=== PATIENT | female | born 1965 | race Caucasian/White ===

== ENCOUNTER 2016-09-26 15:24 | Inpatient (IN) | payer MEDICARE, OTHER ==
[~2016-09-26] VITALS: Ht 157.5 cm; Wt 95.6 kg
[2016-09-26 17:07] VITALS: BP 135/86; PULSE 78; TEMP 97.9; O2SAT 94
[2016-09-26 18:22] VITALS: BP 131/82; PULSE 84; RESP 18; TEMP 98.4; O2SAT 97
[2016-09-26] MEDS ORDERED: CLON.5 PO (19:48)
[2016-09-26 19:59] LABS: AUTOMATED NEUTROPHIL # 6.5 TH/MM3 (1.8-7.7); BASOPHIL # 0.1 TH/MM3 (0-0.2); BASOPHIL % 1.1 % (0.0-2.0); EOSINOPHIL # 0.1 TH/MM3 (0-0.4); EOSINOPHIL % 1.1 % (0.0-4.0); HEMATOCRIT 42.4 % (35.0-46.0); HEMO FLAGS DIFF FINAL; LYMPH % 26.4 % (9.0-44.0); LYMPHOCYTE # 2.6 TH/MM3 (1.0-4.8); MEAN CELL VOLUME 86.5 FL (80.0-100.0); MEAN CORPUSCULAR HEMOGLOBIN 29.8 PG (27.0-34.0); MEAN CORPUSCULAR HGB CONC 34.5 % (32.0-36.0); MONO % 5.7 % (0.0-8.0); NEUT % 65.7 % (16.0-70.0); PLATELET COUNT 213 TH/MM3 (150-450)
[2016-09-26 20:10] LABS: AMPHETAMINE, URINE NEG (NEG); BARBITURATES, URINE NEG (NEG); COCAINE, URINE NEG (NEG)
[2016-09-26 20:16] LABS: ANION GAP 10 MEQ/L (5-15)
[2016-09-26 20:20] LABS: ALKALINE PHOSPHATASE 97 U/L (45-117); ALT (GPT) 27 U/L (10-53); AST (GOT) 22 U/L (15-37); BICARBONATE 23.6 MEQ/L (21.0-32.0); BLOOD UREA NITROGEN 11 MG/DL (7-18); CHLORIDE 105 MEQ/L (98-107); GLOMERULAR FILTRATION RATE 81 ML/MIN (>89); POTASSIUM 3.3 MEQ/L (3.5-5.1); SODIUM (NA) 139 MEQ/L (136-145); TOTAL BILIRUBIN ADULT 0.5 MG/DL (0.2-1.0)
[2016-09-26] MEDS: POTASSIUM CHLORIDE 25 MEQ EFFERVESCENT TAB PO ONE ×2 (21:15→22:05)
--- NOTE | 2016-09-26 21:15 | PD ---
HPI Chief Complaint: Psychiatric Symptoms Time Seen by Provider: 21:14 Travel History International Travel<30 days: No Contact w/Intl Traveler<30days: No Traveled to known affect area: No History of Present Illness HPI 51-year-old female is brought to the emergency department under Herring act for erratic behavior. Apparently the patient got out of her vehicle and began dancing in the street. The patient states that she is here from [facility]. States that she "just took a drive." She states she has a history of depression and PTSD. When asked if she has ever got out of her car and danced in the street like this before she states that yes she has done this in the past. She states that she doesn't feel well overall however has no specific complaints. Denies any fever, chills, nausea, vomiting, diarrhea, constipation, chest pain, shortness of breath, abdominal pain, headache, dizziness. Denies alcohol or drug use. No other complaints. PFSH Past Medical History Bipolar Disorder: Yes Anxiety: Yes Depression: Yes Diabetes: No Patient Takes Glucophage: No Diminished Hearing: No Seizures: No ?: Unknown Past Surgical History Cholecystectomy: Yes Social History Alcohol Use: No Tobacco Use: No Substance Use: No Allergies-Medications (Allergen,Severity, Reaction): Coded Allergies: Sulfa (Verified Allergy, Severe, UNKNOWN, 09/26/16) Reported Meds & Prescriptions Reported Meds & Active Scripts Active Reported Klonopin (Clonazepam) 0.5 Mg Tab 0.5 Mg PO DAILY Review of Systems Except as stated in HPI: all other systems reviewed are Neg Physical Exam Narrative GENERAL: Well-nourished and well-developed pleasant female patient in no acute distress who is nontoxic appearing. Flat affect. SKIN: Warm and dry. HEAD: Normocephalic and atraumatic. EYES: No injection, drainage, or hyphema noted. PERRLA. EOMI. ENT: No nasal drainage noted. Oropharynx is clear. NECK: Supple and the trachea is midline. CARDIOVASCULAR: Regular rate and rhythm. RESPIRATORY: Breath sounds are equal bilaterally with no accessory muscle use, wheezing, rhonchi, or crackles. GASTROINTESTINAL: Abdomen is soft, non-tender, and nondistended. MUSCULOSKELETAL: No obvious deformities, swelling, cyanosis, or ecchymosis is present throughout the upper and lower extremities. Patient has full range of motion without any signs of neurovascular compromise. NEUROLOGICAL: Awake, alert, and oriented. Normal speech and gait. Cranial nerves are grossly intact. Data Data Last Documented VS Vital Signs Date Time Temp Pulse Resp B/P Pulse Ox O2 Delivery O2 Flow Rate FiO2 09/26/16 18:22 98.4 84 18 131/82 97 Room Air Orders Diet Regular Basic (09/26/16 Dinner) Psych Screen (09/26/16 18:01) Complete Blood Count With Diff (09/26/16 18:34) Comprehensive Metabolic Panel (09/26/16 18:34) Drug Screen, Random Urine (09/26/16 18:34) Alcohol (Ethanol) (09/26/16 18:34) Potassium Chloride Eff (K-Lyte Cl Eff) (09/26/16 21:15) Labs Laboratory Tests Test 09/26/16 09/26/16 19:30 19:35 White Blood Count 10.0 TH/MM3 Red Blood Count 4.90 MIL/MM3 Hemoglobin 14.6 GM/DL Hematocrit 42.4 % Mean Corpuscular Volume 86.5 FL Mean Corpuscular Hemoglobin 29.8 PG Mean Corpuscular Hemoglobin 34.5 % Concent Red Cell Distribution Width 14.0 % Platelet Count 213 TH/MM3 Mean Platelet Volume 10.0 FL Neutrophils (%) (Auto) 65.7 % Lymphocytes (%) (Auto) 26.4 % Monocytes (%) (Auto) 5.7 % Eosinophils (%) (Auto) 1.1 % Basophils (%) (Auto) 1.1 % Neutrophils # (Auto) 6.5 TH/MM3 Lymphocytes # (Auto) 2.6 TH/MM3 Monocytes # (Auto) 0.6 TH/MM3 Eosinophils # (Auto) 0.1 TH/MM3 Basophils # (Auto) 0.1 TH/MM3 CBC Comment DIFF FINAL Differential Comment Sodium Level 139 MEQ/L Potassium Level 3.3 MEQ/L Chloride Level 105 MEQ/L Carbon Dioxide Level 23.6 MEQ/L Anion Gap 10 MEQ/L Blood Urea Nitrogen 11 MG/DL Creatinine 0.75 MG/DL Estimat Glomerular Filtration 81 ML/MIN Rate Random Glucose 135 MG/DL Calcium Level 9.1 MG/DL Total Bilirubin 0.5 MG/DL Aspartate Amino Transf 22 U/L (AST/SGOT) Alanine Aminotransferase 27 U/L (ALT/SGPT) Alkaline Phosphatase 97 U/L Total Protein 7.1 GM/DL Albumin 3.4 GM/DL Ethyl Alcohol Level LESS THAN 3 MG/DL Urine Opiates Screen NEG Urine Barbiturates Screen NEG Urine Amphetamines Screen NEG Urine Benzodiazepines Screen NEG Urine Cocaine Screen NEG Urine Cannabinoids Screen NEG MDM Medical Decision Making Medical Screen Exam Complete: Yes Emergency Medical Condition: Yes Differential Diagnosis Differential: Depression versus adjustment reaction versus anxiety versus PTSD versus psychosis NOS versus mood disorder NOS versus substance induced mood disorder versus ODD versus adjustment reaction versus schizophrenia versus bipolar disorder versus schizoaffective versus electrolyte abnormality versus dementia versus malingering. Narrative Course Patient presents under a Herring act. Physical examination and vital signs are essentially unremarkable. Patient has no medical complaints to report. Psych screen has been ordered. The laboratory results are unremarkable. The patient is medically cleared for psychiatric evaluation and disposition. Diagnosis Primary Impression: Mood disorder Darya Marinelli Sep 26, 2016 21:14
[2016-09-26] MEDS ORDERED: LORazepam 2 MG/ML VIAL IM PRN (21:45)
[2016-09-26] MEDS ORDERED: diphenhydrAMINE HCL 50 MG/ML VIAL - HS PRN IM (21:45)
[2016-09-26] MEDS ORDERED: ACETAMINOPHEN 325 MG TAB PO PRN (21:45)
[2016-09-26] MEDS ORDERED: MAGNESIUM HYDROXIDE SUSP 30 ML CUP PO PRN (21:45)
[2016-09-26] MEDS ORDERED: ALUMINUM/MAGNESIUM/SIMETH 30 ML CUP PO PRN (21:45)
[2016-09-26] MEDS ORDERED: traZODone HCL 50 MG TAB PO PRN (21:45)
[2016-09-26] MEDS ORDERED: diphenhydrAMINE HCL 50 MG CAP - HS PRN PO (21:45)
[2016-09-26 22:26] VITALS: BP 132/60; PULSE 64; RESP 18; O2SAT 97
[2016-09-26 23:25] VITALS: BP 112/84; PULSE 74; RESP 18; TEMP 96.4; O2SAT 98
[2016-09-26] MEDS: LORazepam 1 MG TAB PO PRN (23:48)
[2016-09-27] MEDS: NICOTINE 21 MG/24 HR PATCH T-DERMAL SCH (08:29)
[2016-09-27] MEDS: LORazepam 1 MG TAB PO PRN (08:35)
--- NOTE | 2016-09-27 13:54 | HHI.HP ---
Provisional Diagnosis Admission Date Sep 26, 2016 at 21:42 [place] I. Bipolar disorder, acute manic episode with psychosis vs Schizoaffective disorder , bipolar type [place] II. deferred [place] III. No medical history [place] IV. non compliance with medications [place] V. 30 Certification of Person's Competence To Provide Express and Informed Consent I have personally examined Robyn Ramirez , a person being served at [facility] on, Sep 27, 2016 13:15. Express and informed consent means consent voluntarily given in writing, by a competent person, after sufficient explanation and disclosure of the subject matter involved to enable the person to make a knowing and willful decision without any element of force, fraud, deceit, duress, or other form of constraint or coercion. This person is 18 years of age or older, is not now known to be incompetent to consent to treatment with a guardian advocate, and does not have a health care surrogate or proxy currently making medical treatment decisions. I have found this person to be one of the following: [] Competent to provide express and informed consent, as defined above, for voluntary admission to this facility and is competent to provide express and informed consent for treatment. He/she has the consistent capacity to make well reasoned, willful, and knowing decisions concerning his or her medical or mental health treatment. The person fully and consistently understands the purpose of the admission for examination/placement and is fully capable of personally exercising all rights assured [place] [X] Incompetent to provide express and informed consent to voluntary admission, and this is incompetent to provide express and informed consent to treatment. The person must be transferred to involuntary status and a petition for a guardian advocate filed with the Circuit Court. [] Refusing to provide express and informed consent to voluntary admission but is competent to provide express and informed consent for treatment. The person must be discharged or transferred to involuntary status. Form shall be completed within 24 hours of a person's arrival at the receiving facility and filed in the clinical record of each person: 1. Admitted on a voluntary basis 2. Permitted to provide express and informed consent to his/her own treatment 3. Allowed to transfer from involuntary to voluntary status 4. Prior to permitting a person to consent to his or her own treatment after having been previously found incompetent to consent to treatment. History of Present Illness Capacity: Lacks Capacity HPI The patient is a 51-year-old woman, , domiciled in [place], unemployed, on SSI, with psychiatric history of bipolar disorder, manic type, PTSD, anxiety, major depressive disorder, 1 previous hospitalizations back in April 2017 in [facility], no previous suicidal attempts, history of noncompliance with psychotropics, no significant medical history, who came to the emergency department under Herring act for erratic behavior. Apparently the patient got out of her vehicle and began dancing in the street. The patient states that she is here from [facility]. States that she "just took a drive." She states she has a history of depression and PTSD. When asked if she has ever got out of her car and danced in the street like this before she states that yes she has done this in the past. Her toxicology was completely negative for alcohol and drugs. On psychiatric evaluation today patient was found trying to call her in the recreational area of the 26[address] units. She was irritable, demanding to be discharged, stating that she doesn't need to be in the hospital, visibly paranoid towards staff and also toward her , she says that her was to get rid of her and these people here in the hospital already know what she is and are recording her in cameras. Patient says that the reason she is here is because she was dancing in the j[place] "but I don't know what is wrong with that because I have danced in every jain of [place] in the last month". Patient reports angry mood, but stated that he was having the happiest time of her life in the last 5 days. Patient says that she left [place] last Thursday and she has been driving around. She says that in the last 4 days she has been so happy "that I haven't even had the necessity to sleep". During our conversation patient is constantly looking around and seems to be concerned of people in the unit. Patient explained that last weekend she decided to divorce her "because he has been doing a lot of things in my back and cheating on me". Patient denies suicidal or homicidal ideation, she denies visual and auditory hallucinations. During this evaluation prominent rapid speech, elevated mood, irritability, internal preoccupation, restlessness and disorganized thoughts is observed. Patient denies the use of alcohol or illicit drugs.. I got collateral information from her Dev Pruitt, he clarifies that patient lives in [place] with him. Patient left their house last Thursday. She has been driving around in a new car that she bought about month ago, with all her highly valued jewelry, with plenty money going from one town to another town, checking in different hotels but leaving immediately. He states that her paranoia and disorganized behavior has been increasing in the last 2 weeks, and she stopped taking her medication thinking that she did not need them. He says the last week she was talking about being followed and recorded by [employer] and [employer] and she accused one of her best friends of betraying her and plotting with FBI to recording at home. He says that the patient never being officially diagnosed with either bipolar or schizoaffective disorder, she was hospitalized in April 2016, but discharged 3 days later. She has seen many psychiatrists in outpatient basis, but she usually stops seeing them with the argument that she doesn't need to take medication and she doesn't have a psychiatric problem. She has been in Abilify , Latuda, Seroquel, olanzapine, Lamictal, Paxil, Prozac, Wellbutrin, lithium, risperidone, but she never takes the medication beyond 2 or 3 weeks. He finally states that the patient has 2 sister are bipolar, with several hospitalizations, and they have been stable on lithium. Review of Systems Constitutional: DENIES: Diaphoretic episodes, Fatigue, Fever, Weight gain, Weight loss, Chills, Dizziness, Change in appetite, Night Sweats Endocrine: DENIES: Abnorml menstrual pattern, Heat/cold intolerance, Polydipsia , Polyuria, Polyphagia Eyes: DENIES: Blurred vision, Diplopia, Eye inflammation, Eye pain, Vision loss , Photosensitivity, Double Vision Cardiovascular: DENIES: Chest pain, Palpitations, Syncope, Dyspnea on Exertion , PND, Lower Extremity Edema, Orthopnea, Claudication Musculoskeletal: DENIES: Joint pain, Muscle aches, Stiffness, Joint Swelling, Back pain, Neck pain Hematologic/lymphatic: DENIES: Bruising, Lymphadenopathy Immunologic/allergic: DENIES: Eczema, Urticaria Psychiatric: DENIES: Anxiety, Confusion, Mood changes, Depression, Hallucinations, Agitation, Suicidal Ideation, Homicidal Ideation, Delusions Past Psych History Violence risk - self (6 mos) Increased risk of danger to self due to acute marcia and psychosis Substance Abuse History Drugs/Alcohol past 12 months She denies history of alcohol use and other drugs, her toxicology and BAL is negative Past Family Social History Coded Allergies: Sulfa (Verified Allergy, Severe, UNKNOWN, 09/26/16) Reported Medications Clonazepam (Klonopin)0.5 Mg Tab0.5 Mg PO DAILY #60 TAB Ref 0 09/26/16 Current Medications Medications (Trade) Dose Ordered Sig/Denisha Route Start Time Stop Time Status Last Admin (Ativan) 1 mg Q6H PRN PO 09/26/16 21:45 09/27/16 08:35 (Ativan Inj) 1 mg Q6H PRN IM 09/26/16 21:45 (Benadryl) 50 mg HS PRN PO 09/26/16 21:45 (Benadryl Inj) 50 mg HS PRN IM 09/26/16 21:45 (Desyrel) 50 mg HS PRN PO 09/26/16 21:45 (Tylenol) 650 mg Q4H PRN PO 09/26/16 21:45 09/26/16 23:48 (Milk Of Magnesia Liq) 30 ml DAILY PRN PO 09/26/16 21:45 (Mag-Al Plus Susp Liq) 30 ml Q6H PRN PO 09/26/16 21:45 (Habitrol 21 Mg Patch.24 Hr) 1 patch DAILY T-DERMAL 09/27/16 09:00 09/27/16 08:29 Miscellaneous Information 1 HS T-DERMAL 09/27/16 21:00 (ZyPREXA) 2.5 mg Q12HR PO 09/27/16 21:00 (Lithotabs) 300 mg Q12HR PO 09/27/16 13:15 Family History 2 of her sister are bipolar Social History Patient was born and raised in [place], he lives in [place] with her , she has no kids, she is unemployed, she is on SSI, her highest level of education is high school Patient's Strengths (min. 2) Family support Physical Exam On physical exam, patient is hyperactive, restless, but no tremors, no EPS, no stiffness, are present Vital Signs Vital Signs Date Time Temp Pulse Resp B/P Pulse Ox O2 Delivery O2 Flow Rate FiO2 09/26/16 23:25 96.4 74 18 112/84 98 4/14/17 18:22 Room Air Lab Results WBC 10.0, Hgb, 4.9, HCT 42.4, NA 139, K3.3, creatinine 0.75, BUN 11, glucose 135 , AST 22, ALT 21 Mental Status Examination Appearance overweight woman, age appearing, disheveled, irritable, superficially cooperative, guarded Speech: Rapid Orientation: x3 Memory: Unremarkable Thought Process: Goal Directed, Loose Association Thought Content: Bizarre thinking, Paranoid Hallucination Type: None Attention and Concentration: Abnormal Suicidal Ideation: No Previous Suicide Attempts: No Homicidal Ideation: No Previous Homicide Attempts: No Insight: Poor Judgment: Poor Affect: Irritable, Other (elevated) Mood: Angry Motor Activity: Normal gait Assessment & Plan Problem List: (1) Bipolar disorder, manic Assessment & Plan: The patient is a 51-year-old woman, , domiciled in [place], unemployed, on SSI, with psychiatric history of bipolar disorder, manic type, PTSD, anxiety, major depressive disorder, 1 previous hospitalizations back in April 2017 in [facility], no previous suicidal attempts, history of noncompliance with psychotropics, no significant medical history, who came to the emergency department under Herring act for erratic behavior. On psychiatric evaluation today patient is irritable, with elevated mood, rapid speech, significantly paranoid towards staff and toward her , with disorganized speech and thought process, restless, with impaired attention span. Patient seems to be internally preoccupied, even though she denies visual and auditory hallucinations, she denies suicidal or homicidal ideation. As per patient left home in her new car last Thursday, for the last 5 days patient has been driving around [place], checking in multiple hotels, spending a lot of money, she carries with her all her highly valued jewelry, she has not been sleeping, both he also states that in the last 2 weeks patient has been presenting increasing paranoia and disorganized behavior and she has not been taking her medications. Based on previous psychiatric history, present psychiatric assessment and 's collateral information patient meets criteria for involuntary psychiatric admission for stabilization of her manic symptoms. Will start the patient in lithium 300 mg twice a day and olanzapine 2.5 mg twice a day for mood stabilization and psychosis. kiln worker intervention for psychosocial assessment, collateral information from outpatient psychiatrist, individual and group psychotherapy and counseling and to start discharge planning. I will consult psychiatry for second opinion. Extensive support, motivation and psychoeducation provided. Will order TSH, T3-T4 and baseline EKG ICD Code: F31.10 Assessment & Plan Estimated LOS: Chucky Boles MD Sep 27, 2016 13:54
[2016-09-27] MEDS: LITHIUM CARBONATE 300 MG TAB PO SCH ×2 (14:45→20:47)
[2016-09-27 17:41] LABS: FREE T3 2.74 PG/ML (2.18-3.98); FREE T4 1.1 NG/DL (0.76-1.46)
[2016-09-27 18:02] VITALS: BP 110/74; PULSE 83; RESP 17; TEMP 96.4; O2SAT 94
[2016-09-27] MEDS: OLANZapine 2.5 MG TAB PO SCH (20:47)
[2016-09-27] MEDS ORDERED: REMOVE OLD NICOTINE PATCH T-DERMAL SCH (21:00)
[2016-09-28 05:20] VITALS: BP 109/56; PULSE 62; RESP 18; TEMP 98.2; O2SAT 96
[2016-09-28] MEDS: OLANZapine 2.5 MG TAB PO SCH ×2 (08:24→21:35)
[2016-09-28] MEDS: LITHIUM CARBONATE 300 MG TAB PO SCH ×2 (08:24→21:00)
[2016-09-28] MEDS: NICOTINE 21 MG/24 HR PATCH T-DERMAL SCH (08:26)
--- NOTE | 2016-09-28 14:06 | EKG ---
Date Performed: 09/27/2016 Time Performed: 14:12:11 PTAGE: 51 years EKG: Sinus rhythm NORMAL ECG NO PREVIOUS TRACING DOCTOR: Elfego Braun Interpretating Date/Time 09/28/2016 14:04:59
[2016-09-28 18:00] VITALS: BP 115/62; PULSE 75; RESP 18; TEMP 97.8; O2SAT 95
--- NOTE | 2016-09-28 21:00 | PD.CONS ---
Provisional Diagnosis Admission Date Sep 26, 2016 at 21:42 [place] I. Bipolar disorder, acute manic episode with psychosis vs Schizoaffective disorder , bipolar type [place] II. deferred [place] III. No medical history [place] IV. non compliance with medications [place] V. 30 History of Present Illness Service Psychiatry Consult Requested By Psychiatry Reason for Consult 2nd Opinion Primary Care Physician No Primary Care Physician HPI Pt seen and discussed with staff. Chart reviewed. Pt is a 51 YOWF admitted to [facility] under a BA secondary to erratic behavior. Pt was allegedly found by police dancing in the street. Pt states that that she is from [facility] and she has been driving around the [facility] for the past 5 days. She admits to poor sleep and racing thoughts. She is very paranoid during interview and insists that the police did not have the right to put her under a BA because she is from out of town. "They have no jurisdiction over me." She reports that people were wiring her home and listening in on her conversations. She states that she does not think her spouse has her best interests at heart. She is rambling and tangential and easily agitated. She denies SI/HI. She reports that somehow she has lost her credits cards and ID but is happy that she still has concealed carry weapons permit. "That is the most important thing to have. You have to have a gun." She has been taking medications and denies side effects but states that she doesn't trust the physicians here and is angry that her outpatient psychiatrist is not answering her phone calls on Thursday. She demands immediate discharge and states that she refuses to stay in the hospital. Review of Systems Psychiatric: COMPLAINS OF: Mood changes Past Family Social History Coded Allergies: Sulfa (Verified Allergy, Severe, UNKNOWN, 09/26/16) Past Medical History bipolar disorder previous psychiatric hospitalization Reported Medications Clonazepam (Klonopin)0.5 Mg Tab0.5 Mg PO DAILY #60 TAB Ref 0 09/26/16 Current Medications Medications (Trade) Dose Ordered Sig/Denisha Route Start Time Stop Time Status Last Admin (Ativan) 1 mg Q6H PRN PO 09/26/16 21:45 09/27/16 08:35 (Ativan Inj) 1 mg Q6H PRN IM 09/26/16 21:45 (Benadryl) 50 mg HS PRN PO 09/26/16 21:45 (Benadryl Inj) 50 mg HS PRN IM 09/26/16 21:45 (Desyrel) 50 mg HS PRN PO 09/26/16 21:45 (Tylenol) 650 mg Q4H PRN PO 09/26/16 21:45 09/26/16 23:48 (Milk Of Magnesia Liq) 30 ml DAILY PRN PO 09/26/16 21:45 (Mag-Al Plus Susp Liq) 30 ml Q6H PRN PO 09/26/16 21:45 (ZyPREXA) 2.5 mg Q12HR PO 09/27/16 21:00 09/28/16 08:24 (Lithotabs) 300 mg Q12HR PO 09/27/16 13:15 09/28/16 08:24 Family History family hx of bipolar disorder Social History Lives with , Born in [place]. Disabled. Patient's Strengths (min. 2) Family support Physical Exam Vital Signs Vital Signs Date Time Temp Pulse Resp B/P Pulse Ox O2 Delivery O2 Flow Rate FiO2 09/28/16 18:00 97.8 75 18 115/62 95 09/26/16 18:22 Room Air Mental Status Examination Speech: Rapid Orientation: x3 Memory: Unremarkable Thought Process: Goal Directed, Tangential Thought Content: Bizarre thinking, Paranoid Hallucination Type: None Attention and Concentration: Easily Distracted Suicidal Ideation: No Previous Suicide Attempts: No Homicidal Ideation: No Previous Homicide Attempts: No Insight: Poor Judgment: Poor Affect: Irritable Affect if Inappropriate: Labile Mood: Angry Motor Activity: Normal gait Assessment & Plan Problem List: (1) Bipolar disorder, current episode manic severe with psychotic features ICD Code: F31.2 Assessment & Plan I agree that pt meets criteria for involuntary hospitalization due to marcia with psychotic features. 2nd opinion paperwork completed. Estimated LOS: Hayde Rodrigez MD Sep 28, 2016 21:00
[2016-09-29 06:38] VITALS: BP 112/60; PULSE 54; RESP 18; TEMP 98.3; O2SAT 96
[2016-09-29] MEDS: LITHIUM CARBONATE 300 MG TAB PO SCH ×2 (09:00→22:24)
[2016-09-29] MEDS: OLANZapine 2.5 MG TAB PO SCH ×2 (09:06→22:23)
--- NOTE | 2016-09-29 14:54 | HHI.PYPN ---
Subjective Remarks Patient continues to argue with her on the phone every hour or 2 throughout the day. She continues to show diminished insight and impaired judgment. She appears delusional and feels persecuted. This physician is interested in treating her with Abilify and possibly Abilify Maintena to address her ongoing issues with paranoia. She also has accompanying issues of mood instability. Review of Systems ROS Limitations: Clinical Condition Objective Alert: Yes [place]: Person, Place, Date, Situation Mood: Calm Affect: Euthymic Memory Intact: Immediate, Recent, Remote Hallucinations: Other Delusions: Yes Delusion Type: Paranoid, Other Suicidal: Ideation Homicidal: Ideation Insight/Judgment Impaired Vitals/IOs Vital Signs Date Time Temp Pulse Resp B/P Pulse Ox O2 Delivery O2 Flow Rate FiO2 09/29/16 06:38 98.3 54 18 112/60 96 09/26/16 18:22 Room Air Intake and Output 09/28/16 09/28/16 09/29/16 08:00 16:00 00:00 Intake Total 360 ml Balance 360 ml Assessment & Plan Problem List: (1) Bipolar disorder, current episode manic severe with psychotic features ICD Code: F31.2 Assessment & Plan Estimated LOS: 3 days patient has not yet stable from a emotional and mood standpoint. She continues to appear psychotic. She is disorganized and illogical and does not have a plan to take care of herself. This physician feels that a long-acting injectable antipsychotic is called for. Justification for Cont. Inpt. Patient is psychotic and unable to care for herself. Elfego Benedict MD Sep 29, 2016 14:54
[2016-09-29 19:58] VITALS: BP 142/68; PULSE 80; RESP 18; TEMP 98.1; O2SAT 96
[2016-09-30 06:18] VITALS: BP 150/76; PULSE 85; RESP 18; TEMP 97.9; O2SAT 95
[2016-09-30] MEDS: LITHIUM CARBONATE 300 MG TAB PO SCH (09:00)
[2016-09-30] MEDS: OLANZapine 2.5 MG TAB PO SCH (09:26)
--- NOTE | 2016-09-30 10:05 | HHI.DS ---
Psychiatry Discharge Summary Inpatient Psychiatric care?: Yes Advance Directive: No Reason Not Provided: Due to Patient Condition Mental Health AdvanceDirective: No (refused) Health Care Proxy: No Admission Admission Date Sep 26, 2016 at 21:42 Admission Diagnosis: (1) Bipolar disorder, manic ICD Code: F31.10 Brief History Pt seen and discussed with staff. Chart reviewed. Pt is a 51 YOWF admitted to [facility] under a BA secondary to erratic behavior. Pt was allegedly found by police dancing in the street. Pt states that that she is from [facility] and she has been driving around the [facility] for the past 5 days. She admits to poor sleep and racing thoughts. She is very paranoid during interview and insists that the police did not have the right to put her under a BA because she is from out of town. "They have no jurisdiction over me." She reports that people were wiring her home and listening in on her conversations. She states that she does not think her spouse has her best interests at heart. She is rambling and tangential and easily agitated. She denies SI/HI. She reports that somehow she has lost her credits cards and ID but is happy that she still has concealed carry weapons permit. "That is the most important thing to have. You have to have a gun." She has been taking medications and denies side effects but states that she doesn't trust the physicians here and is angry that her outpatient psychiatrist is not answering her phone calls on Thursday. She demands immediate discharge and states that she refuses to stay in the hospital. Tobacco Use In Past 30 Days: No Tobacco Past 30 Days Alcohol Use: Never Hospital Course Patient participated in some activities of individual and group therapy. She was not always cooperative but did provide this physician with her doctors name and number. Patient's has been calling the nurses repeatedly regarding his 's progress. This morning the patient was calm and cooperative with this physician, politely requesting the medicines that she wants, including Abilify. She is also requesting that she might be discharged. She is verbally tejas for safety and does not show evidence of psychotic thinking at this time. No procedures were performed. Results Blood Pressure 150 / 76 Vital Signs Date Time Temp Pulse Resp B/P Pulse Ox O2 Delivery O2 Flow Rate FiO2 09/30/16 06:18 97.9 85 18 150/76 95 09/26/16 18:22 Room Air None pending Summary of Procedures None Pending results at discharge: No Medications # of Antipsychotic meds at D/C: 1 Appropriate >1 Antipsych meds?: 1 Approp Antipsych med options 1 - Minimum of three failed multiple trials of monotherapy. 2 - Documented plan to taper to monotherapy due to previous use of multiple meds OR cross-taper in progress at D/C. 3 - Documentation of augmentation of Clozapine. 4 - Justification other than those listed in allowable values 1-3, document here : Discharge Discharge Date: Oct 01, 2016 Discharge Diagnosis: (1) Bipolar disorder, manic Diagnosis: Principal ICD Code: F31.10 Mental Status Exam at Disch Although the patient continued to show signs of bipolar marcia by speaking rapidly and circumstantially, she was able to fully cooperate and verbally contract for safety. She has no ideation or intention of harming herself or others. She is willing to cooperate with medication management and would like to be treated closer to home. She does not appear to have psychotic thinking at this time. Her cognition in fact is intact. Pt Condition on Discharge: Stable Discharge Disposition: Discharge Home Discharge Instructions Diet Instructions: As Tolerated, No Restrictions Activities you can perform: Regular-No Restrictions Discharge Time > 30 minutes Discharge/Advance Care Plan Health Problems: (1) Bipolar disorder, current episode manic severe with psychotic features Goals to promote your health * To prevent worsening of your condition and complications * To maintain your health at the optimal level Directions to meet your goals Take your medications as prescribed Follow your dietary instruction Follow activity as directed Keep your appointments as scheduled Take your immunizations and boosters as scheduled If your symptoms worsen call your PCP, if no PCP go to Urgent Care Center or Emergency Room For 05/01 questions related to your inpatient stay or results of tests pending at discharge, please contact Dr. Elfego Benedict at Smoking is Dangerous to Your Health. Avoid second hand smoking Elfego Benedict MD Sep 30, 2016 10:05
[2016-09-30] MEDS ORDERED: CLON.5 PO (10:08)
[2016-09-30] MEDS ORDERED: ABIL15TA2 PO ×2 (10:08→10:20)
[2016-09-30] MEDS ORDERED: CLON0.5T PO (10:22)
[2016-09-30] MEDS ORDERED: ARIPiprazole 15 MG TAB PO SCH (21:00)
[2016-09-30] MEDS ORDERED: clonazePAM 0.5 MG TAB PO SCH (21:00)
== END 2016-09-30 13:15 | disposition home or self-care (01) | DRG 885 ==
LOC: EDBD → NEDAMB 15:24 → NEDA 21:42 → H260 22:37
PROVIDERS: ADMIT Psychiatry & Neurology Psychiatry; ATTEND Psychiatry & Neurology Psychiatry
DX: F31.2 Bipolar disorder, current episode manic severe with psychotic features (principal); Z91.14 Patient's other noncompliance with medication regimen; Z81.8 Family history of other mental and behavioral disorders
CPT/HCPCS: 80053; 80307; 84439; 84443; 84481; 85025; 93005; 99284; Q0163